=== PATIENT | female | born 1970 | race Hispanic/Latino ===

== ENCOUNTER 2018-05-11 18:40 | Emergency (ER) | payer SELFPAY ==
[2018-05-11] MEDS ORDERED: predniSONE 20 MG TAB ONE (19:12)
[2018-05-11] MEDS ORDERED: diphenhydrAMINE 25 MG CAP ONE (19:12)
== END 2018-05-11 19:19 | disposition home or self-care (01) ==
LOC: SCSER 18:40
DX: T78.40XA Allergy, unspecified, initial encounter (principal); E11.9 Type 2 diabetes mellitus without complications; I10 Essential (primary) hypertension
CPT/HCPCS: 99283; J7506